=== PATIENT | male | born 2000 | race Caucasian/White ===

== ENCOUNTER 2019-11-10 13:44 | Emergency (ER) | payer OTHER ==
[~2019-11-10] VITALS: Ht 182.9 cm; Wt 79.5 kg
[~2019-11-10 13:44] MED LIST: MEDROL 4MG DOSPA4 MG PO
[2019-11-10 13:57] VITALS: TEMP 98.3
[2019-11-10 14:25] VITALS: BP 128/67
[2019-11-10] MEDS ORDERED: FLEXERIL 1010 MG/TAB PO (15:19)
[2019-11-10] MEDS ORDERED: IBU800 M1 PO (15:19)
[2019-11-10 15:27] VITALS: PULSE 70
== END 2019-11-10 15:28 | disposition home or self-care (01) ==
LOC: COL.ER 13:44
DX: M54.32 Sciatica, left side (principal)
CPT/HCPCS: J2360